=== PATIENT | female | born 1945 | race Caucasian/White ===

== ENCOUNTER 2021-05-19 17:15 | Emergency (ER) | payer MEDICARE, SELFPAY ==
[2021-05-19 17:23] VITALS: BP 127/58; PULSE 61; RESP 20; TEMP 36.9; O2SAT 100; BMI 25.7
[2021-05-19 17:45] VITALS: BP 127/58; PULSE 61; RESP 20; TEMP 36.9
--- NOTE | 2021-05-19 17:56 | HMH.EDUTC ---
[facility] [place] Clinical Impression: Viral syndrome, Exposure to COVID-19 virus, Bronchitis Disposition: Home, Self-Care Condition on Discharge: Good Instructions: DI for Acute Bronchitis, DI for Viral Syndrome, DI for COVID-19 (Suspected or Confirmed ), Preventing the Spread of Coronavirus Discharge Instructions Additional Instructions: Drink plenty of fluids. Take tylenol or ibuprofen for pain or fever. Take the medications as directed. Follow up with your regular doctor. GO TO THE ER FOR ANY WORSENING SYMPTOMS Quarantine until you know the results of your covid-19 test. If it is positive, the health department should call you and give you further instructions about your length of Quarantine and other things. Notify your school or workplace of your results and follow their instructions regarding return to work/school. Prescriptions: Guaifenesin/Dextromethorphan [Guaifenesin-Dm 200-20 mg/10 ml] 5 ml PO Q6HP PRN #240 ml PRN Reason: Cough Transmission Status: Received by [id number] Azithromycin [Z-Dami 250mg Tab*] 250 mg PO UD DOSE PK #6 tab Transmission Status: Received by [id number] Referrals: Mary Kay Aggarwal MD [Primary Care Provider] - Time of Disposition: 18:22 Medical Decision Making - Medical Records Medical records reviewed: No: I reviewed the patient's medical records. - Nithin Inquiry Pt receiving controlled substance: No Vital Signs: 05/19/21 17:23 05/19/21 17:45 Temperature 98.4 F 98.4 F Temperature Source Oral Pulse Rate 61 Pulse Rate [Left] 61 Respiratory Rate 20 20 Blood Pressure 127/58 L Blood Pressure [Right Arm] 127/58 L Blood Pressure Mean [Right Arm] 81 02 Sat by Pulse Oximetry 100 Oxygen Delivery Method Room Air - Lab Data Lab results reviewed: Yes: I reviewed the patient's lab results. [facility] [place] - General Stated complaint: covid test Time Seen by Provider: 05/19/21 17:56 Mode of Arrival: Ambulatory Source of Information: Patient Limitations: No Limitations Description of Symptoms (Recalled from Triage Doc. by RN): FRANCISCO, FEVER AND FATIGUE X2 DAYS HEENT Symptoms (Recalled from RN notes): Yes (FRANCISCO) Resp Symptoms (Recalled from RN notes): No Skin Symptoms (Recalled from RN notes): No MS Symptoms (Recalled from RN notes): No Functional Status (Recalled from RN notes): FEVER AND FATIGUE - History of Present Illness Provider Complaint: She states that for the past 2 days she has had a cough with whitish sputum, ear pain and pressure, and she has felt bad. She has not been vaccinated against covid-19. She supposedly doesn't have a history of copd or asthma, but she has smoked for the past 35 years. - Related Data Previous Rx's Medication Instructions Recorded Azithromycin [Z-Dami 250mg Tab*] 250 mg PO UD DOSE PK #6 tab 05/19/21 Guaifenesin/Dextromethorphan 5 ml PO Q6HP PRN #240 ml 05/19/21 [Guaifenesin-Dm 200-20 mg/10 ml] Allergies Allergy/AdvReac Type Severity Reaction Status Date / Time No Known Allergies Allergy Verified 05/19/21 18:19 - Worker's Comp Is this a Worker's Comp case?: No [facility] History - Hepatitis A Screen Drug use history?: No High risk sexual behaviors?: No History of sexually transmitted infection?: No Currently employed?: No Childcare worker?: No Do you have indoor plumbing?: Yes Do you have electricity?: Yes Attestation statement:: This patient has been screened for Hepatitis A risk factors. I have reviewed the patient's past medical history: Yes ROS Obtained: Yes All systems reviewed & no additional complaints - Constitutional Constitutional: Reports chills, Denies fever(s), Reports poor appetite, Reports malaise - Eyes Eyes: Denies eye discharge - ENT Ears, Nose, Mouth, and Throat: Reports as per HPI, Reports sore throat - Cardiovascular Cardiovascular: Denies chest pain - Respiratory Respiratory: Reports chest congestion, Reports cough, Denies dyspnea, Denies str
== END 2021-05-19 18:46 | disposition home or self-care (01) ==
PROVIDERS: Emergency Provider Nurse Practitioner Family; PCP Family Medicine
DX: B34.9 Viral infection, unspecified (principal); Z20.822 Contact with and (suspected) exposure to COVID-19; J40 Bronchitis, not specified as acute or chronic
CPT/HCPCS: 99202; G0463; U0003

== ENCOUNTER → 2021-09-01 17:27 | Outpatient (CLI) | payer MEDICARE, SELFPAY | PROVIDERS: Visit Provider Nurse Practitioner Family | DX: Z20.822 Contact with and (suspected) exposure to COVID-19 (principal) | CPT/HCPCS: C9803; U0003; U0005 ==